=== PATIENT | male | born 1945 | race Caucasian/White ===

== ENCOUNTER 2016-12-29 08:17 | Inpatient (IN) | payer MEDICARE ==
[2016-12-29] VITALS (10 sets, daily range): BP systolic 122–146; BP diastolic 68–94; PULSE 86–110; RESP 17–20; TEMP 97.7–99.6; O2SAT 93–97
[~2016-12-29] VITALS: Ht 172.7 cm; Wt 78.6 kg
[2016-12-29] MEDS ORDERED: LIPI40TA PO (08:51)
--- NOTE | 2016-12-29 08:56 | PD ---
HPI Chief Complaint: General Weakness Time Seen by Provider: 08:40 Travel History International Travel<30 days: No Contact w/Intl Traveler<30days: No Traveled to known affect area: No History of Present Illness HPI The patient is a 71-year-old male who presents to the emergency department for increasing generalized weakness, decreased appetite, and lethargy. 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 The patient resides full-time in [place], however, staying in [place] until February. The patient was evaluated by his local oncologist last week, Dr. Kaur. The patient states his last dose of chemotherapy was on 16 December. The patient was evaluated by Dr. Hightower and placed on mirtazapine for appetite and ensure 3 times a day. The patient does state his appetite is slightly improved, however, is only drinking 1 ensure per day. The patient was able to eat chicken and vegetables last night, however, has not ate breakfast. He does note decreasing energy with difficulty ambulating around the house. The patient does not have a local primary physician. The patient does note a productive cough producing white sputum which is new over the last 3-4 days, but denies any company fever or shortness of breath. The patient denies any concurrent abdominal pain. PFSH Past Medical History Cancer: Yes (lung ca) Cardiovascular Problems: Yes High Cholesterol: Yes Chemotherapy: Yes (12/16/16) Diminished Hearing: No Respiratory: Yes Tetanus Vaccination: > 5 Years Influenza Vaccination: No Past Surgical History Cardiac Surgery: Yes (pacemaker) Cholecystectomy: Yes Coronary Stent: Yes Pacemaker: Yes Other Surgery: Yes (left lung removed) Social History Alcohol Use: No Tobacco Use: No Substance Use: No Allergies-Medications (Allergen,Severity, Reaction): Coded Allergies: No Known Allergies (Unverified , 12/29/16) Reported Meds & Prescriptions Reported Meds & Active Scripts Active Reported Lortab (Hydrocodone-Acetaminophen) 10-325 Mg Tab 1 Tab PO BID NEB PRN Mexiletine (Mexiletine HCl) 150 Mg Cap 150 Mg PO BID NEB Metoprolol Tartrate 100 Mg Tab 100 Mg PO DAILY Clonazepam 1 Mg Tab 1 Mg PO DAILY Lasix (Furosemide) 20 Mg Tab 20 Mg PO DAILY Losartan (Losartan Potassium) 25 Mg Tab 25 Mg PO DAILY Lipitor (Atorvastatin Calcium) 40 Mg Tab 40 Mg PO DAILY Review of Systems Except as stated in HPI: all other systems reviewed are Neg General / Constitutional: No: Fever HENT: No: Lightheadedness Cardiovascular: No: Chest Pain or Discomfort Respiratory: Positive: Cough, Wheezing, No: Shortness of Breath Gastrointestinal: Positive: Loss of Appetite, No: Nausea, Vomiting, Diarrhea, Abdominal Pain, Changes in Bowel Habits Musculoskeletal: Positive: Weakness Neurologic: Positive: Weakness Physical Exam Narrative GENERAL: Awake, alert, 71-year-old male who appears his stated age and is in no acute respiratory distress. SKIN: Warm and dry. HEAD: Atraumatic. Normocephalic. EYES: No injection or drainage. ENT: No nasal bleeding or discharge. Mucous membranes pink and moist. NECK: Trachea midline. No JVD. CARDIOVASCULAR: Regular, tachycardic with a heart rate of 110. Port in place right chest wall. Pacemaker in place left chest wall. RESPIRATORY: No accessory muscle use. No audible breath sounds left side. Wheezes and rhonchi noted right base. GASTROINTESTINAL: Abdomen soft, non-tender, nondistended. No rebound tenderness. MUSCULOSKELETAL: No obvious deformities. No clubbing. No cyanosis. No edema. NEUROLOGICAL: Awake and alert. No obvious cranial nerve deficits. Motor grossly within normal limits. Normal speech. PSYCHIATRIC: Appropriate mood and affect; insight and judgment normal. Data Data Last Documented VS Vital Signs Date Time Temp Pulse Resp B/P Pulse Ox O2 Delivery O2 Flow Rate FiO2 12/29/16 10:10 97.8 102 18 122/68 97 Room Air 12/29/16 09:10 21 Orders Complete Blood Count With Diff (12/29/16 08:50) Comprehensive Metabolic Panel (12/29/16 08:50) Magnesium (Mg) (12/29/16 08:50) Urinalysis - C+S If Indicated (12/29/16 08:50) Iv Access Insert/Monitor (12/29/16 08:50) Electrocardiogram (12/29/16 08:50) Ecg Monitoring (12/29/16 08:50) Oximetry (12/29/16 08:50) Oxygen Administration (12/29/16 08:50) Chest, Single Ap (12/29/16 08:50) Sodium Chloride 0.9% Flush (Ns Flush) (12/29/16 09:00) Albuterol-Ipratropium Neb (Duoneb Neb) (12/29/16 09:00) Sodium Chlor 0.9% 1000 Ml Inj (Ns 1000 M (12/29/16 09:00) Lactic Acid (12/29/16 09:25) Blood Culture (12/29/16 09:25) Cefepime Inj (Maxipime Inj) (12/29/16 09:45) Azithromycin Inj (Zithromax Inj) (12/29/16 09:45) Sodium Chlor 0.9% 1000 Ml Inj (Ns 1000 M (12/29/16 10:15) Admit Order (Ed Use Only) (12/29/16 10:18) Labs Laboratory Tests Test 12/29/16 08:55 White Blood Count 17.3 TH/MM3 Red Blood Count 5.19 MIL/MM3 Hemoglobin 15.1 GM/DL Hematocrit 43.6 % Mean Corpuscular Volume 84.1 FL Mean Corpuscular Hemoglobin 29.1 PG Mean Corpuscular Hemoglobin 34.6 % Concent Red Cell Distribution Width 14.3 % Platelet Count 160 TH/MM3 Mean Platelet Volume 7.4 FL Neutrophils (%) (Auto) 78.1 % Lymphocytes (%) (Auto) 4.6 % Monocytes (%) (Auto) 15.9 % Eosinophils (%) (Auto) 1.2 % Basophils (%) (Auto) 0.2 % Neutrophils # (Auto) 13.5 TH/MM3 Lymphocytes # (Auto) 0.8 TH/MM3 Monocytes # (Auto) 2.8 TH/MM3 Eosinophils # (Auto) 0.2 TH/MM3 Basophils # (Auto) 0.0 TH/MM3 CBC Comment AUTO DIFF Differential Comment AUTO DIFF CONFIRMED Platelet Estimate NORMAL Platelet Morphology Comment NORMAL Sodium Level 130 MEQ/L Potassium Level 4.1 MEQ/L Chloride Level 93 MEQ/L Carbon Dioxide Level 27.2 MEQ/L Anion Gap 10 MEQ/L Blood Urea Nitrogen 16 MG/DL Creatinine 0.82 MG/DL Estimat Glomerular Filtration 92 ML/MIN Rate Random Glucose 151 MG/DL Calcium Level 8.4 MG/DL Magnesium Level 2.0 MG/DL Total Bilirubin 0.8 MG/DL Aspartate Amino Transf 23 U/L (AST/SGOT) Alanine Aminotransferase 32 U/L (ALT/SGPT) Alkaline Phosphatase 107 U/L Total Protein 6.4 GM/DL Albumin 3.1 GM/DL MDM Medical Decision Making Medical Screen Exam Complete: Yes Emergency Medical Condition: Yes Medical Record Reviewed: Yes Interpretation(s) EKG reveals normal sinus rhythm with a rate in 97. Unifocal PVC. Intraventricular conduction delay with QRS 146 ms. X-ray the chest reveals nonspecific infiltrate in the right lower lung. There are no prior studies for comparison. Recommend noncontrast CT thorax for further evaluation. Differential Diagnosis Differential diagnosis includes deconditioning, malnutrition, hypoalbuminemia, hyponatremia, hypocalcemia, hypercalcemia, sepsis, bronchitis, pneumonia, dehydration. Narrative Course The patient's port was accessed, labs were drawn and sent, and the patient was placed on cardiac telemetry monitoring and continuous pulse oximetry monitoring. EKG was ordered and interpreted. Chest x-ray was ordered. The patient was administered DuoNeb nebs 2 and 1 L of normal saline. I reviewed the patient's recent visit with his local oncologist, Dr. Hightower. The patient's chest x-ray reveals nonspecific infiltrate in the right lower lung. Chest x- ray also demonstrates a previous left pneumonectomy with postsurgical changes. As the patient has an infiltrate in the right lung, the patient was administered cefepime and Zithromax, patient has had recent chemotherapy with progressing symptoms. The patient will be admitted. I reviewed the patient's CT of the thorax with contrast that was performed December 13, 2016 at [facility]. The patient had a 3.5 cm masslike density in the lateral right lung apex with some adjacent linear parenchymal density and a greater than 6 cm masslike density present in the posterior right lung base with some adjacent airspace consolidation. Several right lung masses are noted with no comparison studies, also noted previous left pneumonectomy. The patient also had a CT the abdomen and pelvis with no evidence of metastatic disease in the abdomen or pelvis. Sepsis Criteria SIRS Criteria (2 or more): Heart rate over 90, WBC > 14972, < 4000 or > 10% bands Sepsis Criteria (SIRS+source): Infect source susp/known Criteria Outcome: Meets sepsis criteria Physician Communication Physician Communication The on-call medical service was paged for admission. I discussed the patient with Dr. Gotti who agrees with admission. Diagnosis Primary Impression: Pneumonia Qualified Code: J18.1 - Pneumonia of right lower lobe due to infectious organism Additional Impressions: Sepsis Qualified Code: A41.9 - Sepsis, due to unspecified organism Carcinoma, lung Qualified Code: C34.91 - Carcinoma, lung, right Condition: Stable Ahmet Licea MD Dec 29, 2016 08:56
[2016-12-29] MEDS ORDERED: SODIUM CHLOR 0.9% 1000 ML INJ 1,000 ML IV ONE ×2 (09:00→10:15)
[2016-12-29] MEDS ORDERED: SODIUM CHLORIDE 0.9% FLUSH 5 ML FLUSH IVF PRN (09:00)
[2016-12-29] MEDS ORDERED: HYDR-3535 PO (09:01)
[2016-12-29] MEDS ORDERED: FURO1TAB62 PO (09:01)
[2016-12-29] MEDS ORDERED: LOSA25TA PO (09:01)
[2016-12-29] MEDS ORDERED: CLON1TAB PO (09:01)
[2016-12-29] MEDS ORDERED: METO100T PO (09:01)
[2016-12-29] MEDS ORDERED: MEXI150C PO (09:01)
[2016-12-29] MEDS: RESP: ALBUTEROL 2.5 MG/IPRATROPIUM 0.5 MG NEB (SCH) INH ×2 (09:09→09:10)
[2016-12-29 09:35] LABS: AUTOMATED NEUTROPHIL # 13.5 TH/MM3 (1.8-7.7); BASOPHIL % 0.2 % (0.0-2.0); EOSINOPHIL # 0.2 TH/MM3 (0-0.4); EOSINOPHIL % 1.2 % (0.0-4.0); HEMATOCRIT 43.6 % (39.0-51.0); LYMPH % 4.6 % (9.0-44.0); LYMPHOCYTE # 0.8 TH/MM3 (1.0-4.8); MEAN CELL VOLUME 84.1 FL (80.0-100.0); MEAN CORPUSCULAR HEMOGLOBIN 29.1 PG (27.0-34.0); MEAN CORPUSCULAR HGB CONC 34.6 % (32.0-36.0); MONO % 15.9 % (0.0-8.0); NEUT % 78.1 % (16.0-70.0); PLATELET COUNT 160 TH/MM3 (150-450); RED BLOOD COUNT 5.19 MIL/MM3 (4.50-5.90); RED CELL DISTRIBUTION WIDTH 14.3 % (11.6-17.2); WHITE BLOOD COUNT 17.3 TH/MM3 (4.0-11.0)
--- NOTE | 2016-12-29 09:36 | RADRPT ---
EXAM DATE/TIME: 12/29/2016 09:07 [place] COMPARISON: No previous studies available for comparison. INDICATIONS : Weakness and shortness of breath for over one week. MEDICAL HISTORY : Carcinoma, lung. SURGICAL HISTORY : Pacemaker. Coronary stent. Debrillator. Left pneumonectomy. ENCOUNTER: Initial ACUITY: 1 week PAIN SCORE: 0/10 LOCATION: Bilateral chest FINDINGS: A single view of the chest demonstrates a previous left pneumonectomy with postsurgical changes. Ther e is a nonspecific parenchymal infiltrate in the right lower lung. The right upper lung is clear. The re are no pleural effusions. The heart silhouette is obscured by the left pneumonectomy. There is a p acemaker overlying the left chest. There is no pneumothorax. There is a right-sided central line in p lace. The bony structures are grossly intact. CONCLUSION: Nonspecific infiltrate in the right lower lung. There are no prior studies for comparison. Recommend noncontrast CT thorax for further evaluation. Wil Ferrara MD on December 29, 2016 at 9:32 Board Certified Radiologist. This report was verified electronically.
[2016-12-29 09:40] LABS: HEMO FLAGS AUTO DIFF
[2016-12-29] MEDS ORDERED: AZITHROMYCIN INJ 500 MG in SODIUM CHLOR 0.9% 250 ML INJ 250 ML IV ONE (09:45)
[2016-12-29] MEDS ORDERED: CEFEPIME INJ 2,000 MG in SODIUM CHLORIDE 0.9% INJ 100 ML IV ONE (09:45)
[2016-12-29 09:50] LABS: ALKALINE PHOSPHATASE 107 U/L (45-117); ALT (GPT) 32 U/L (12-78); ANION GAP 10 MEQ/L (5-15); AST (GOT) 23 U/L (15-37); BICARBONATE 27.2 MEQ/L (21.0-32.0); BLOOD UREA NITROGEN 16 MG/DL (7-18); CHLORIDE 93 MEQ/L (98-107); GLOMERULAR FILTRATION RATE 92 ML/MIN (>89); POTASSIUM 4.1 MEQ/L (3.5-5.1); SODIUM (NA) 130 MEQ/L (136-145); TOTAL BILIRUBIN ADULT 0.8 MG/DL (0.2-1.0)
[2016-12-29 10:09] LABS: PLATELET ESTIMATE SMEAR NORMAL (NORMAL); PLATELET MORPHOLOGY NORMAL (NORMAL); SCAN/DIFF AUTO DIFF CONFIRMED
[2016-12-29] MEDS ORDERED: NALOXONE HCL 0.4 MG/ML AMP IV PRN (10:30)
[2016-12-29] MEDS ORDERED: ONDANSETRON HCL 4 MG/2 ML VIAL IVP PRN (10:30)
[2016-12-29] MEDS ORDERED: SODIUM CHLORIDE 0.9% FLUSH 5 ML FLUSH FLUSH PRN (10:30)
[2016-12-29] MEDS ORDERED: TEMAZEPAM 15 MG CAP PO PRN (10:30)
[2016-12-29] MEDS ORDERED: ACETAMINOPHEN 325 MG TAB PO PRN ×2 (10:30)
[2016-12-29] MEDS ORDERED: RESP: ALBUTEROL 2.5 MG/IPRATROPIUM 0.5 MG NEB (PRN) NEB (10:30)
--- NOTE | 2016-12-29 12:19 | HHI.HP ---
[facility] Service [facility] Primary Care Physician Non-Staff Admission Diagnosis right lower lobe pneumonia, sepsis, lung carcinoma on chemotherapy Diagnoses: (1) Severe sepsis (2) Pneumonia (3) Carcinoma, lung Chief Complaint: Shortness of breath and generalized weakness Travel History International Travel<30 Days: No Contact w/Intl Traveler <30 Da: No Traveled to Known Affected Are: No Sepsis Criteria SIRS Criteria (2 or more): Heart rate over 90, WBC > 90875, < 4000 or > 10% bands Sepsis Criteria (SIRS+source): Infect source susp/known Severe Sepsis (+one): Lactate >2 Criteria Outcome: Meets severe sepsis criteria History of Present Illness 71-year-old male with poorly differentiated stage IV squamous cell carcinoma of the lung was previously under the care of medical oncology and receiving chemotherapy presented to the ED for evaluation of worsening shortness of breath , generalized weakness and a productive cough producing white sputum x 4 days without any febrile episode. Patient also reports continued decrease appetite. Patient received his last dose of chemotherapy on 12/16/16 and is due for one in January. Currently denies any abdominal pain, chest pain or any GI bleed. He is originally from [place] and has been living in [place] for the past 4 months visiting a friend. Patient has previous partial left lung resection Review of Systems Other 12 systems reviewed and are negative except for the one mentioned in the history of present illness Past Family Social History Past Medical History Stage IV poorly differentiated squamous cell carcinoma of the lung Coronary artery disease Hyperlipidemia Hypertension Past Surgical History Cholecystectomy: Yes Hernia repair CABG Coronary Stent: Yes Pacemaker: Yes left lung removed Reported Medications Lortab (Hydrocodone-Acetaminophen) 10-325 Mg Tab 1 Tab PO BID NEB PRN Mexiletine (Mexiletine HCl) 150 Mg Cap 150 Mg PO BID NEB Metoprolol Tartrate 100 Mg Tab 100 Mg PO DAILY Clonazepam 1 Mg Tab 1 Mg PO DAILY Lasix (Furosemide) 20 Mg Tab 20 Mg PO DAILY Losartan (Losartan Potassium) 25 Mg Tab 25 Mg PO DAILY Lipitor (Atorvastatin Calcium) 40 Mg Tab 40 Mg PO DAILY Allergies: Coded Allergies: No Known Allergies (Unverified , 12/29/16) Family History Strong family history of lung cancer with both his sister and brother dying from the disease Social History Alcohol Use: No Tobacco Use: No Substance Use: No Physical Exam Vital Signs Vital Signs Date Time Temp Pulse Resp B/P Pulse Ox O2 Delivery O2 Flow Rate FiO2 12/29/16 10:10 97.8 102 18 122/68 97 Room Air 12/29/16 09:10 96 21 12/29/16 09:03 98 18 136/75 97 Room Air 12/29/16 09:01 96 Room Air 12/29/16 09:01 18 97 Room Air 12/29/16 08:47 18 96 Room Air 12/29/16 08:19 97.7 110 18 146/83 94 Room Air Physical Exam GENERAL: This is a well-nourished, well-developed patient, in no apparent distress. SKIN: No rashes, ecchymoses or lesions. Cool and dry. HEAD: Atraumatic. Normocephalic. No temporal or scalp tenderness. EYES: Pupils equal round and reactive. Extraocular motions intact. No scleral icterus. No injection or drainage. ENT: Nose without bleeding, purulent drainage or septal hematoma. Throat without erythema, tonsillar hypertrophy or exudate. Uvula midline. Airway patent. NECK: Trachea midline. No JVD or lymphadenopathy. Supple, nontender, no meningeal signs. CARDIOVASCULAR: Regular rate and rhythm without murmurs, gallops, or rubs. RESPIRATORY: Breath sounds decreased right lung and absent on the left side. + rhonchi. GASTROINTESTINAL: Abdomen soft, non-tender, nondistended. No hepato-splenomegaly , or palpable masses. No guarding. MUSCULOSKELETAL: Extremities without clubbing, cyanosis, or edema. No joint tenderness, effusion, or edema noted. No calf tenderness. Negative Homans sign bilaterally. NEUROLOGICAL: Awake and alert. Cranial nerves II through XII intact. Motor and sensory grossly within normal limits. Five out of 5 muscle strength in all muscle groups. Normal speech. Laboratory Laboratory Tests Test 12/29/16 12/29/16 08:55 09:50 White Blood Count 17.3 Red Blood Count 5.19 Hemoglobin 15.1 Hematocrit 43.6 Mean Corpuscular Volume 84.1 Mean Corpuscular Hemoglobin 29.1 Mean Corpuscular Hemoglobin 34.6 Concent Red Cell Distribution Width 14.3 Platelet Count 160 Mean Platelet Volume 7.4 Neutrophils (%) (Auto) 78.1 Lymphocytes (%) (Auto) 4.6 Monocytes (%) (Auto) 15.9 Eosinophils (%) (Auto) 1.2 Basophils (%) (Auto) 0.2 Neutrophils # (Auto) 13.5 Lymphocytes # (Auto) 0.8 Monocytes # (Auto) 2.8 Eosinophils # (Auto) 0.2 Basophils # (Auto) 0.0 CBC Comment AUTO DIFF Differential Comment AUTO DIFF CONFIRMED Platelet Estimate NORMAL Platelet Morphology Comment NORMAL Sodium Level 130 Potassium Level 4.1 Chloride Level 93 Carbon Dioxide Level 27.2 Anion Gap 10 Blood Urea Nitrogen 16 Creatinine 0.82 Estimat Glomerular Filtration 92 Rate Random Glucose 151 Calcium Level 8.4 Magnesium Level 2.0 Total Bilirubin 0.8 Aspartate Amino Transf 23 (AST/SGOT) Alanine Aminotransferase 32 (ALT/SGPT) Alkaline Phosphatase 107 Total Protein 6.4 Albumin 3.1 Lactic Acid Level 3.5 Date/Time Procedure Status Source Growth 12/29/16 09:50 Aerobic Blood Culture Received Blood Peripheral Pending 12/29/16 09:50 Anaerobic Blood Culture Received Blood Peripheral Pending Result Diagram: 12/29/16 0855 12/29/16 0855 Imaging Last Impressions Chest X-Ray 12/29/16 0850 Signed Impressions: Service Date/Time: Thursday, December 29, 2016 09:07 - CONCLUSION: Nonspecific infiltrate in the right lower lung. There are no prior studies for comparison. Recommend noncontrast CT thorax for further evaluation. Wil Ferrara MD Assessment and Plan Problem List: (1) Severe sepsis ICD Code: A41.9 Status: Acute (2) Carcinoma, lung ICD Code: C34.90 Status: Acute (3) Pneumonia ICD Code: J18.9 Status: Acute Assessment and Plan 71-year-old male with Severe sepsis: Meets severe sepsis criteria; Heart rate over 90, WBC > 10810, < 4000 or > 10% bands and Lactate >2; likely secondary to pulmonary infiltrate. Status post cefepime IV 1 and azithromycin IV 1 in ED, continue with cefepime every 8Hours and Azithromycin; monitor cultures Community-acquired pneumonia: Chest x-ray noted and reviewed by me with finding of Nonspecific infiltrate in the right lower lung. Outside CT thorax 12/13/16 findings discussed and review by me with ED physician with finding of 3.5 cm masslike density in the lateral right lung apex with some adjacent linear parenchymal density and a greater than 6 cm masslike density present in the posterior right lung base with some adjacent airspace consolidation. Several right lung masses are noted with no comparison studies, also noted previous left pneumonectomy. Currently on Cefepime IV every 8 hours and Azithromycin, DuoNeb and maintain oxygen saturation above 92%. Leukocytosis with bandemia: Treat as in above History of poorly differentiated squamous cell carcinoma of the lung: Consult medical oncology for further evaluation. Patient currently receiving chemotherapy.Outside CT thorax 12/13/16 findings discussed and review by me with ED physician with finding of 3.5 cm masslike density in the lateral right lung apex with some adjacent linear parenchymal density and a greater than 6 cm masslike density present in the posterior right lung base with some adjacent airspace consolidation. Several right lung masses are noted with no comparison studies, also noted previous left pneumonectomy. Again outside CT abdomen/ pelvics reviewed by me and finding discussed with ED physician without no evidence of metastasis disease in abdomen/pelvics Anorexia: Secondary to history of present on cancer, dietary consult. Ensure 3 times a day. Continue with History of heart disease, and other chronic medical conditions: Resume outpatient medications DVT Prophylaxis: B-SCDs Code Status Full code Discussed Condition With Patient, ED physician Physician Certification 2 Midnight Certification Type: Admission for Inpatient Services Order for Inpatient Services The services are ordered in accordance with Medicare regulations or non- Medicare payer requirements, as applicable. In the case of services not specified as inpatient-only, they are appropriately provided as inpatient services in accordance with the 2-midnight benchmark. Estimated LOS (days): 2 days is the estimated time the patient will need to remain in the hospital, assuming treatment plan goals are met and no additional complications. Post-Hospital Plan: Not yet determined Problem Qualifiers (1) Pneumonia: Qualified Code: J18.1 - Pneumonia of right lower lobe due to infectious organism (2) Carcinoma, lung: Qualified Code: C34.91 - Carcinoma, lung, right Ezekiel Gotti MD Dec 29, 2016 12:19
[2016-12-29 12:38] LABS: BLOOD, URINE NEG (NEG); COMMENT (UR) CULT NOT INDICATED; CULTURE IF INDICATED CULT NOT INDICATED; GLUCOSE,URINE 70 mg/dL (NEG); KETONE, URINE NEG (NEG); MUCUS URINE FEW /lpf (OCC); NITRITE,URINE NEG (NEG); SQUAMOUS EPITHELIAL CELL URINE <1 /hpf (0-5); URINE COLOR YELLOW (YELLW/STRAW)
--- NOTE | 2016-12-29 12:50 | EKG ---
Date Performed: 12/29/2016 Time Performed: 09:00:55 PTAGE: 71 years EKG: Sinus rhythm WITH FREQUENT VENTRICULAR PREMATURE COMPLEXES POSSIBLE LEFT ATRIAL ENLARGEMENT INTRAVENTRICULAR COND UCTION DELAY ABNORMAL ECG NO PREVIOUS TRACING DOCTOR: Juan Whelan Interpretating Date/Time 12/29/2016 12:48:47
[2016-12-29] MEDS: RESP: ALBUTEROL 2.5 MG/IPRATROPIUM 0.5 MG NEB (SCH) NEB ×2 (13:08→19:45)
[2016-12-29] MEDS ORDERED: MEXILETINE HCL 200 MG CAP PO SCH (14:00)
--- NOTE | 2016-12-29 14:19 | MB ---
cc: MARTA TRIVEDI DATE OF CONSULTATION: 12/29/2016. REASON FOR CONSULTATION: 1. Stage IV lung cancer with the patient receiving nivolumab. 2. Probable acute pneumonia. PATIENT PROFILE: The patient is a 71-year white male. He was once and . He was born in [place]. He is visiting in [place] and staying with a close friend and is planning on returning in early February of 2017 to [place]. His current residence is in [place]. 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 He stopped smoking in 1984 and previously smoked three packs of cigarettes per day for 25 years for a total of 75 pack/years. He does not drink alcohol. HISTORY OF PRESENT ILLNESS: The patient is a 71-year-old male whose history dates back to 1997 when he had a left pneumonectomy for a non-small cell lung cancer. He developed recurrence in 2007 involving the right lung positive for poorly differentiated squamous cell carcinoma. He was treated with concurrent chemotherapy and radiation therapy and achieved a remission. He then had recurrence or a relapse in 2014 and underwent additional radiation therapy. He developed a further recurrence in 2015, and he states he was again treated with radiation therapy. In October of 2016, he was started on nivolumab receiving treatment every two weeks. There has been about a 20 pound weight loss during the past several months. He was relatively stable until the past week when he developed increasing cough, shortness of breath, a rattle in the chest and a mild amount of clear sputum. Due to this acute deterioration, he went to the emergency room and had a chest x-ray on 12/29/2016. I reviewed the images and there is a nonspecific infiltrate in the right lower lung. There were no previous studies for comparison. He had recent studies done at [facility] in [place]. I called up the images and reviewed the images. He had a CT scan of the abdomen and pelvis and thorax on December 13, 2016. The abdominal CT scan shows no evidence of metastatic disease in the abdomen. The CT scan of the thorax is distinctly abnormal. There is a 3.5 cm mass in the lateral right lung apex. In the right hilum, there is a mass measuring 1.5 cm. There is an approximately 6 cm mass-like density in the posterior right lung base with some adjacent airspace consolidation. 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 PAST SURGICAL HISTORY: 1. Cholecystectomy. 2. Coronary artery bypass grafting of three vessels in 2000. 3. Defibrillator placement in 2010. 4. Hernia in 196. 5. Left pneumonectomy in 1997. PAST MEDICAL HISTORY: 1. 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 2. Arthritis. 3. Elevated cholesterol. 4. Hypertension. 5. Myocardial infarction in 1984. MEDICATIONS PRIOR TO ADMISSION: 1. Tylenol PRN. 2. Atorvastatin 40 milligrams a day. 3. Clonazepam 2 milligrams p.o. at bedtime PRN sleep. 4. Lasix 20 a day. 5. Lortab PRN. 6. Losartan 25 milligrams a day. 7. Metoprolol 100 milligrams a day. 8. Mexiletine 150 milligrams p.o. twice a day. ALLERGIES: NO KNOWN DRUG ALLERGIES. FAMILY HISTORY: Family history is noncontributory. REVIEW OF SYSTEMS: No change in vision or hearing. No chest pain or palpitations, orthopnea or PND. RESPIRATORY: Increasing shortness of breath, cough rattling chest and occasional sputum, primarily clear. GI: Diminished appetite and 15-20 pound weight loss. No melena, hematochezia or hematemesis. : Decreased urinary force. MUSCULOSKELETAL: Some mild arthritic pains. NEUROLOGIC: Generalized but not focal weakness. SKIN: Normal. PHYSICAL EXAMINATION: GENERAL: The physical exam reveals a gentleman who appears both chronically and acutely ill. He has a raspy deep wet cough. VITAL SIGNS: His blood pressure is 130/70, respiratory rate 18, pulse 100, temperature 99, 02 saturation is 97%. HEAD, EYES, EARS, NOSE, THROAT: Head is normocephalic. The sclerae and conjunctivae are normal. Oropharynx unremarkable. LYMPHATIC: There is no cervical, supraclavicular, axillary or inguinal adenopathy. CHEST: He has an Infusaport to the right of the sternum. He has a defibrillator in the left upper chest. HEART: Regular rhythm. Rate 90. LUNGS: The left lungs sounds are almost absent. The right lung shows wheezing and a few rhonchi. Of note, he indicates that the wheezing is new. ABDOMEN: Abdomen is soft. No enlargement of the liver or spleen. No masses. No tenderness. EXTREMITIES: Trace edema. MUSCULOSKELETAL: No bone pain. NEUROLOGIC: No weakness. Cognition and affect normal. SKIN: Unremarkable except for occasional ecchymoses. ASSESSMENT: 1. The patient is a 71-year-old male who has had multiple recurrences of a non-small cell lung cancer. In fact, he has had at least three recurrences. He has received extensive chemotherapy and is now receiving nivolumab. He has had an acute deterioration with increasing cough, shortness of breath and an abnormal exam of the lungs. He has an infiltrate in the right lung. I believe that he has pneumonia and appropriate antibiotics have been started 2. He has stage IV [id number] lung cancer. He has significant radiographic findings on the CT of the thorax. It is imperative that his previous films be obtained for comparison. Given the extensive radiation he has received before, the old films will be necessary to determine what is progressive disease, what are changes from radiation therapy and what is ongoing pneumonia. In the meantime, the only issue is the treatment of his pneumonia. Antibiotics have been ordered consisting of cefepime and Zithromax and this should be adequate. He is also receiving albuterol. MD LULU Benavides/JUAN MIGUEL /1:42 PM /2:03 PM SUDHA
[2016-12-29] MEDS: CEFEPIME INJ 2,000 MG in SODIUM CHLORIDE 0.9% INJ 100 ML IV SCH (18:43)
[2016-12-29] MEDS: SODIUM CHLORIDE 0.9% FLUSH 5 ML FLUSH FLUSH SCH (20:17)
[2016-12-29] MEDS: LACTOBACILLUS ACIDOPHILUS TAB PO SCH (20:17)
[2016-12-29] MEDS ORDERED: MEXILETINE 150 MG PO SCH (21:00)
[2016-12-30] VITALS (8 sets, daily range): BP systolic 82–118; BP diastolic 57–73; PULSE 72–92; RESP 18–22; TEMP 97.3–98.9; O2SAT 93–100
[2016-12-30] MEDS: CEFEPIME INJ 2,000 MG in SODIUM CHLORIDE 0.9% INJ 100 ML IV SCH ×3 (02:18→18:08)
[2016-12-30] MEDS: RESP: ALBUTEROL 2.5 MG/IPRATROPIUM 0.5 MG NEB (SCH) NEB ×3 (08:30→19:05)
[2016-12-30] MEDS ORDERED: clonazePAM 1 MG TAB PO SCH (09:00)
--- NOTE | 2016-12-30 09:56 | HHI.PR ---
Subjective Remarks Follow-up severe sepsis/community-acquired pneumonia/lung cancer 12/30/16-patient seen and examined, reports significant improvement of weakness as well as cough production. Currently afebrile Objective Vitals Vital Signs Date Time Temp Pulse Resp B/P Pulse Ox O2 Delivery O2 Flow Rate FiO2 12/30/16 08:31 95 21 12/30/16 08:00 97.5 80 22 104/64 100 12/30/16 04:05 97.9 73 18 118/73 96 12/30/16 00:00 98.2 83 18 97/73 93 12/29/16 20:00 99.6 86 17 130/86 94 12/29/16 19:45 93 21 12/29/16 15:30 99.6 107 20 132/94 96 12/29/16 14:53 108 17 137/68 97 12/29/16 12:30 99.0 99 18 137/69 97 Room Air 12/29/16 10:10 97.8 102 18 122/68 97 Room Air I/O 12/29/16 12/29/16 12/29/16 12/30/16 12/30/16 12/30/16 07:00 15:00 23:00 07:00 15:00 23:00 Intake Total 180 ml 240 ml 340 ml Output Total 1200 ml 590 ml 600 ml 800 ml Balance -1020 ml -350 ml -260 ml -800 ml Intake Oral 180 ml 240 ml 240 ml IV Total 100 ml Output Urine Total 1200 ml 590 ml 600 ml 800 ml # Voids 2 # Bowel Movements 0 0 0 Result Diagram: 12/29/16 0855 12/29/16 0855 Imaging Last Impressions Chest X-Ray 12/29/16 0850 Signed Impressions: Service Date/Time: Thursday, December 29, 2016 09:07 - CONCLUSION: Nonspecific infiltrate in the right lower lung. There are no prior studies for comparison. Recommend noncontrast CT thorax for further evaluation. Wil Ferrara MD Objective Remarks GENERAL: NAD SKIN: Warm and dry. HEAD: Normocephalic. EYES: No scleral icterus. No injection or drainage. NECK: Supple, trachea midline. No JVD or lymphadenopathy. CARDIOVASCULAR: Regular rate and rhythm without murmurs, gallops, or rubs. RESPIRATORY: Breath sounds decrease Right lung and absent on Left side. No accessory muscle use. GASTROINTESTINAL: Abdomen soft, non-tender, nondistended. MUSCULOSKELETAL: No cyanosis, or edema. BACK: Nontender without obvious deformity. No CVA tenderness. A/P Problem List: (1) Severe sepsis ICD Code: A41.9 Status: Acute (2) Pneumonia ICD Code: J18.9 Status: Acute (3) Carcinoma, lung ICD Code: C34.90 Status: Acute Assessment and Plan 71-year-old male with Severe sepsis: continue with cefepime every 8Hours and Azithromycin; monitor cultures Community-acquired pneumonia: Chest x-ray with finding of Nonspecific infiltrate in the right lower lung. Outside CT thorax 12/13/16 with finding of 3.5 cm masslike density in the lateral right lung apex with some adjacent linear parenchymal density and a greater than 6 cm masslike density present in the posterior right lung base with some adjacent airspace consolidation. Several right lung masses are noted with no comparison studies, also noted previous left pneumonectomy. Continue with Cefepime IV every 8 hours and Azithromycin, DuoNeb and maintain oxygen saturation above 92%. 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 Patient currently receiving chemotherapy.Outside CT thorax 12/13/16 with finding of 3.5 cm masslike density in the lateral right lung apex with some adjacent linear parenchymal density and a greater than 6 cm masslike density present in the posterior right lung base with some adjacent airspace consolidation. Several right lung masses are noted with no comparison studies, also noted previous left pneumonectomy. outside CT abdomen/pelvics without no evidence of metastasis disease in abdomen /pelvics Anorexia: Secondary to history of present on cancer, dietary consult. Ensure 3 times a day. Continue with History of heart disease, and other chronic medical conditions: Continue outpatient medications DVT Prophylaxis: B-SCDs Problem Qualifiers (1) Pneumonia: Qualified Code: J18.1 - Pneumonia of right lower lobe due to infectious organism (2) Carcinoma, lung: Qualified Code: C34.91 - Carcinoma, lung, right Ezekiel Gotti MD Dec 30, 2016 09:56
[2016-12-30] MEDS ORDERED: Infusaport/Implanted VAD PRN NS Lock Flush IVF (10:00)
[2016-12-30] MEDS: LACTOBACILLUS ACIDOPHILUS TAB PO SCH ×2 (10:22→21:09)
[2016-12-30] MEDS: ATORVASTATIN 40 MG TAB PO SCH (10:22)
[2016-12-30] MEDS: LOSARTAN 25 MG TAB PO SCH (10:22)
[2016-12-30] MEDS: FUROSEMIDE 20 MG TAB PO SCH (10:22)
[2016-12-30] MEDS: METOPROLOL TARTRATE 100 MG TAB PO SCH (10:23)
[2016-12-30] MEDS: AZITHROMYCIN INJ 500 MG in SODIUM CHLOR 0.9% 250 ML INJ 250 ML IV SCH (10:24)
[2016-12-30] MEDS: SODIUM CHLORIDE 0.9% FLUSH 5 ML FLUSH FLUSH SCH ×2 (10:32→21:10)
[2016-12-30 10:55] LABS: AUTOMATED NEUTROPHIL # 8.6 TH/MM3 (1.8-7.7); BASOPHIL % 0.2 % (0.0-2.0); EOSINOPHIL # 0.3 TH/MM3 (0-0.4); EOSINOPHIL % 2.4 % (0.0-4.0); HEMATOCRIT 42.7 % (39.0-51.0); HEMO FLAGS DIFF FINAL; LYMPH % 6.9 % (9.0-44.0); LYMPHOCYTE # 0.8 TH/MM3 (1.0-4.8); MEAN CELL VOLUME 85.5 FL (80.0-100.0); MEAN CORPUSCULAR HEMOGLOBIN 29.2 PG (27.0-34.0); MEAN CORPUSCULAR HGB CONC 34.2 % (32.0-36.0); MONO % 13.6 % (0.0-8.0); NEUT % 76.9 % (16.0-70.0); PLATELET COUNT 143 TH/MM3 (150-450); WHITE BLOOD COUNT 11.2 TH/MM3 (4.0-11.0)
[2016-12-30 11:29] LABS: ANION GAP 7 MEQ/L (5-15); AST (GOT) 22 U/L (15-37); BICARBONATE 29.2 MEQ/L (21.0-32.0); BLOOD UREA NITROGEN 12 MG/DL (7-18); CHLORIDE 98 MEQ/L (98-107); GLOMERULAR FILTRATION RATE 91 ML/MIN (>89); POTASSIUM 4.5 MEQ/L (3.5-5.1); SODIUM (NA) 134 MEQ/L (136-145)
[2016-12-30 11:34] LABS: ALKALINE PHOSPHATASE 85 U/L (45-117); ALT (GPT) 22 U/L (12-78); TOTAL BILIRUBIN ADULT 0.7 MG/DL (0.2-1.0)
--- NOTE | 2016-12-30 15:36 | PD.ONC.PN ---
Subjective Subjective Remarks Afebrile overnight. Patient states he feels much better today. He ate some breakfast and is in the midst of eating lunch. Objective Data Date Time Temp Pulse Resp B/P Pulse Ox O2 Delivery O2 Flow Rate FiO2 12/30/16 12:00 97.5 88 20 82/57 95 12/30/16 08:31 95 21 12/30/16 08:00 97.5 80 22 104/64 100 12/30/16 04:05 97.9 73 18 118/73 96 12/30/16 00:00 98.2 83 18 97/73 93 12/29/16 20:00 99.6 86 17 130/86 94 12/29/16 19:45 93 21 12/29/16 15:30 99.6 107 20 132/94 96 12/30/16 12/30/16 12/30/16 07:00 15:00 23:00 Intake Total 340 ml Output Total 600 ml 800 ml Balance -260 ml -800 ml Result Diagram: 12/30/16 1035 12/30/16 1035 Laboratory Results Laboratory Tests Test 12/30/16 10:35 White Blood Count 11.2 TH/MM3 Red Blood Count 5.00 MIL/MM3 Hemoglobin 14.6 GM/DL Hematocrit 42.7 % Mean Corpuscular Volume 85.5 FL Mean Corpuscular Hemoglobin 29.2 PG Mean Corpuscular Hemoglobin 34.2 % Concent Red Cell Distribution Width 15.0 % Platelet Count 143 TH/MM3 Mean Platelet Volume 7.0 FL Neutrophils (%) (Auto) 76.9 % Lymphocytes (%) (Auto) 6.9 % Monocytes (%) (Auto) 13.6 % Eosinophils (%) (Auto) 2.4 % Basophils (%) (Auto) 0.2 % Neutrophils # (Auto) 8.6 TH/MM3 Lymphocytes # (Auto) 0.8 TH/MM3 Monocytes # (Auto) 1.5 TH/MM3 Eosinophils # (Auto) 0.3 TH/MM3 Basophils # (Auto) 0.0 TH/MM3 CBC Comment DIFF FINAL Differential Comment Sodium Level 134 MEQ/L Potassium Level 4.5 MEQ/L Chloride Level 98 MEQ/L Carbon Dioxide Level 29.2 MEQ/L Anion Gap 7 MEQ/L Blood Urea Nitrogen 12 MG/DL Creatinine 0.83 MG/DL Estimat Glomerular Filtration 91 ML/MIN Rate Random Glucose 130 MG/DL Calcium Level 8.8 MG/DL Total Bilirubin 0.7 MG/DL Aspartate Amino Transf 22 U/L (AST/SGOT) Alanine Aminotransferase 22 U/L (ALT/SGPT) Alkaline Phosphatase 85 U/L Total Protein 6.1 GM/DL Albumin 2.8 GM/DL Culture Results Microbiology Date/Time Procedure Status Source Growth 12/29/16 09:12 Aerobic Blood Culture - Preliminary Resulted Blood Peripheral NO GROWTH IN 1 DAY 12/29/16 09:12 Anaerobic Blood Culture - Preliminary Resulted Blood Peripheral NO GROWTH IN 1 DAY 12/29/16 09:50 Aerobic Blood Culture - Preliminary Resulted Blood Peripheral NO GROWTH IN 1 DAY 12/29/16 09:50 Anaerobic Blood Culture - Preliminary Resulted Blood Peripheral NO GROWTH IN 1 DAY Administered Medications Medications (Trade) Dose Ordered Sig/Levy Route PRN Reason Start Time Stop Time Status Last Admin Dose Admin IV Flush 2 ml 2 ml BID FLUSH 12/29/16 21:00 12/30/16 10:32 Cefepime HCl/ Sodium Chloride (Maxipime Inj/NS Inj) 100 ml @ 200 mls/hr Q8H IV 12/29/16 18:00 12/30/16 11:22 Lactobacillus Acidophilus (Lactinex) 1 tab Q12HR PO 12/29/16 21:00 12/30/16 10:22 Atorvastatin Calcium (Lipitor) 40 mg DAILY PO 12/30/16 09:00 12/30/16 10:22 Furosemide (Lasix) 20 mg DAILY PO 12/30/16 09:00 12/30/16 10:22 Losartan Potassium (Cozaar) 25 mg DAILY PO 12/30/16 09:00 12/30/16 10:22 Metoprolol Tartrate 100 mg 100 mg DAILY PO 12/30/16 09:00 12/30/16 10:23 Azithromycin/ Sodium Chloride (Zithromax Inj/ NS 250 ml Inj) 250 ml @ 250 mls/hr Q24H IV 12/30/16 09:00 12/30/16 10:24 Heparin Sodium (Porcine) (Heparin Central Flush) 250 units UNSCH PRN IVF SEE PROTOCOL TABLE 12/30/16 10:00 12/30/16 10:24 Objective Remarks GENERAL: Elderly male, sitting up in bed eating lunch SKIN: Warm and dry. HEAD: Normocephalic. EYES: No injection or drainage. NECK: Supple, trachea midline. CARDIOVASCULAR: +S1/S2 RESPIRATORY: no breath sounds, left lung. diminished at right base, occasional rhonchi GASTROINTESTINAL: Abdomen soft, non-tender, nondistended. EXTREMITIES: No cyanosis NEUROLOGICAL: No obvious focal deficit. Awake, alert, and oriented x3. Assessment/Plan Problem List: (1) Carcinoma, lung Status: Acute Plan: History: 1997--diagnosed and had a left pneumonectomy 2007 developed recurrence involving the right lung positive for poorly differentiated squamous cell carcinoma. treated with concurrent chemotherapy and radiation therapy and achieved a remission. 2014 relapse--> underwent additional radiation therapy. 2016: further recurrence in 2015, again treated with radiation therapy. October 2016, started on nivolumab receiving treatment every two weeks. +20 pound weight loss during the past several months. CT ab/pelvis: no mets in abdomen Ct thorax: 3.5cm mass in the lateral right lung apex. +mass1.5 cm, right hilum; + 6 cm mass-like density in the posterior right lung base with some adjacent airspace consolidation. 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 (2) Pneumonia Status: Acute Plan: --on Cefepime and Zithromax --BC no growth --WBC improving Assessment 71y/o male with metastatic NSCLC admitted with pneumonia h/o Cholecystectomy. Coronary artery bypass grafting of three vessels in 2000. Defibrillator placement in 2010. Left pneumonectomy in 1997. Hypertension. Myocardial infarction in 1984. Plan 1. continue antibiotics 2. consult concrete floater 3. supportive care. Attending Statement The exam, history, and the medical decision-making described in the above note were completed with the assistance of the mid-level provider. I reviewed and agree with the findings presented. I attest that I had a [id number] encounter with the patient on the same day, and personally performed and documented my assessment and findings in the medical record. Problem Qualifiers (1) Carcinoma, lung: Qualified Code: C34.91 - Carcinoma, lung, right (2) Pneumonia: Qualified Code: J18.1 - Pneumonia of right lower lobe due to infectious organism Shara Narvaez Dec 30, 2016 15:36 Bryan Hightower MD Dec 31, 2016 22:03
[2016-12-30] MEDS: clonazePAM 1 MG TAB PO SCH (21:09)
[2016-12-31] VITALS (7 sets, daily range): BP systolic 89–136; BP diastolic 62–71; PULSE 81–98; RESP 16–18; TEMP 96.6–99.4; O2SAT 95–97
[2016-12-31] MEDS: CEFEPIME INJ 2,000 MG in SODIUM CHLORIDE 0.9% INJ 100 ML IV SCH ×3 (02:28→16:41)
[2016-12-31] MEDS ORDERED: ALTEPLASE RECOMBINANT 2 MG VIAL INTRACATH PRN (08:00)
[2016-12-31] MEDS: RESP: ALBUTEROL 2.5 MG/IPRATROPIUM 0.5 MG NEB (SCH) NEB ×2 (08:16→19:00)
--- NOTE | 2016-12-31 09:55 | PD.ONC.PN ---
Subjective Subjective Remarks Afebrile overnight. Patient eating breakfast. He states his cough and congestion are improved. He is able to get to the bathroom on his own, but still sometimes feels weak. He notes he has had weakness in his legs present for the past few weeks, as well as some numbness and tingling in the left arm and left leg. discussed with RN Objective Data Date Time Temp Pulse Resp B/P Pulse Ox O2 Delivery O2 Flow Rate FiO2 12/31/16 08:16 95 21 12/31/16 08:00 97.4 93 16 118/70 96 12/31/16 04:00 98.1 86 18 136/71 96 12/31/16 00:00 99.4 98 18 111/66 96 12/30/16 20:00 98.9 92 18 115/66 95 12/30/16 19:05 95 21 12/30/16 16:00 97.5 75 20 98/66 96 12/30/16 12:00 97.5 88 20 82/57 95 Result Diagram: 12/30/16 1035 12/30/16 1035 Laboratory Results Laboratory Tests Test 12/30/16 10:35 White Blood Count 11.2 TH/MM3 Red Blood Count 5.00 MIL/MM3 Hemoglobin 14.6 GM/DL Hematocrit 42.7 % Mean Corpuscular Volume 85.5 FL Mean Corpuscular Hemoglobin 29.2 PG Mean Corpuscular Hemoglobin 34.2 % Concent Red Cell Distribution Width 15.0 % Platelet Count 143 TH/MM3 Mean Platelet Volume 7.0 FL Neutrophils (%) (Auto) 76.9 % Lymphocytes (%) (Auto) 6.9 % Monocytes (%) (Auto) 13.6 % Eosinophils (%) (Auto) 2.4 % Basophils (%) (Auto) 0.2 % Neutrophils # (Auto) 8.6 TH/MM3 Lymphocytes # (Auto) 0.8 TH/MM3 Monocytes # (Auto) 1.5 TH/MM3 Eosinophils # (Auto) 0.3 TH/MM3 Basophils # (Auto) 0.0 TH/MM3 CBC Comment DIFF FINAL Differential Comment Sodium Level 134 MEQ/L Potassium Level 4.5 MEQ/L Chloride Level 98 MEQ/L Carbon Dioxide Level 29.2 MEQ/L Anion Gap 7 MEQ/L Blood Urea Nitrogen 12 MG/DL Creatinine 0.83 MG/DL Estimat Glomerular Filtration 91 ML/MIN Rate Random Glucose 130 MG/DL Calcium Level 8.8 MG/DL Total Bilirubin 0.7 MG/DL Aspartate Amino Transf 22 U/L (AST/SGOT) Alanine Aminotransferase 22 U/L (ALT/SGPT) Alkaline Phosphatase 85 U/L Total Protein 6.1 GM/DL Albumin 2.8 GM/DL Culture Results Microbiology Date/Time Procedure Status Source Growth 12/29/16 09:12 Aerobic Blood Culture - Preliminary Resulted Blood Peripheral NO GROWTH IN 1 DAY 12/29/16 09:12 Anaerobic Blood Culture - Preliminary Resulted Blood Peripheral NO GROWTH IN 1 DAY 12/29/16 09:50 Aerobic Blood Culture - Preliminary Resulted Blood Peripheral NO GROWTH IN 1 DAY 12/29/16 09:50 Anaerobic Blood Culture - Preliminary Resulted Blood Peripheral NO GROWTH IN 1 DAY Administered Medications Medications (Trade) Dose Ordered Sig/Levy Route PRN Reason Start Time Stop Time Status Last Admin Dose Admin IV Flush 2 ml 2 ml BID FLUSH 12/29/16 21:00 12/30/16 21:10 Cefepime HCl/ Sodium Chloride (Maxipime Inj/NS Inj) 100 ml @ 200 mls/hr Q8H IV 12/29/16 18:00 12/31/16 02:28 Lactobacillus Acidophilus (Lactinex) 1 tab Q12HR PO 12/29/16 21:00 12/30/16 21:09 Atorvastatin Calcium (Lipitor) 40 mg DAILY PO 12/30/16 09:00 12/30/16 10:22 Furosemide (Lasix) 20 mg DAILY PO 12/30/16 09:00 12/30/16 10:22 Losartan Potassium (Cozaar) 25 mg DAILY PO 12/30/16 09:00 12/30/16 10:22 Metoprolol Tartrate 100 mg 100 mg DAILY PO 12/30/16 09:00 12/30/16 10:23 Azithromycin/ Sodium Chloride (Zithromax Inj/ NS 250 ml Inj) 250 ml @ 250 mls/hr Q24H IV 12/30/16 09:00 12/30/16 10:24 Heparin Sodium (Porcine) (Heparin Central Flush) 250 units UNSCH PRN IVF SEE PROTOCOL TABLE 12/30/16 10:00 12/30/16 10:24 Clonazepam (KlonoPIN) 1 mg HS PO 12/30/16 21:00 12/30/16 21:09 Objective Remarks GENERAL: Elderly male, sitting up in bed eating breakfast. SKIN: Warm and dry. HEAD: Normocephalic. EYES: No injection or drainage. NECK: Supple, trachea midline. CARDIOVASCULAR: +S1/S2 RESPIRATORY: no breath sounds, left lung. crackles, left lung base. GASTROINTESTINAL: Abdomen soft, non-tender, nondistended. EXTREMITIES: No cyanosis NEUROLOGICAL: awake and alert. normal speech. Assessment/Plan Problem List: (1) Carcinoma, lung Status: Acute Plan: History: 1997--diagnosed and had a left pneumonectomy 2007 developed recurrence involving the right lung positive for poorly differentiated squamous cell carcinoma. treated with concurrent chemotherapy and radiation therapy and achieved a remission. 2014 relapse--> underwent additional radiation therapy. 2016: further recurrence in 2015, again treated with radiation therapy. October 2016, started on nivolumab receiving treatment every two weeks. +20 pound weight loss during the past several months. CT ab/pelvis: no mets in abdomen Ct thorax: 3.5cm mass in the lateral right lung apex. +mass1.5 cm, right hilum; + 6 cm mass-like density in the posterior right lung base with some adjacent airspace consolidation. 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 (2) Pneumonia Status: Acute Plan: --on Cefepime and Zithromax --BC no growth --WBC improving Assessment 71y/o male with metastatic NSCLC admitted with pneumonia h/o Cholecystectomy. Coronary artery bypass grafting of three vessels in 2000. Defibrillator placement in 2010. Left pneumonectomy in 1997. Hypertension. Myocardial infarction in 1984. Plan 1. continue supportive care 2. continue antibiotics 3. plan for follow up in clinic once discharged 4. patient cannot have MRI, will order CT brain and CT lumbar spine. Attending Statement The exam, history, and the medical decision-making described in the above note were completed with the assistance of the mid-level provider. I reviewed and agree with the findings presented. I attest that I had a [id number] encounter with the patient on the same day, and personally performed and documented my assessment and findings in the medical record. 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 Gomez. Patient could potentially get stereotactic radiation treatments to the 3 brain lesions. Unfortunately , he has a pacemaker and can not get an MRI to plan for SRS. possibility of doing IMRT? discussed the situation with patient in detail With respect to lung lesions, would need imaging CD from [place] for comparison whether there is progressive disease Problem Qualifiers (1) Carcinoma, lung: Qualified Code: C34.91 - Carcinoma, lung, right (2) Pneumonia: Qualified Code: J18.1 - Pneumonia of right lower lobe due to infectious organism Shara Narvaez Dec 31, 2016 09:55 Bryan Hightower MD Dec 31, 2016 22:10
[2016-12-31] MEDS: LACTOBACILLUS ACIDOPHILUS TAB PO SCH ×2 (10:07→22:14)
[2016-12-31] MEDS: ATORVASTATIN 40 MG TAB PO SCH (10:08)
[2016-12-31] MEDS: METOPROLOL TARTRATE 100 MG TAB PO SCH (10:08)
[2016-12-31] MEDS: LOSARTAN 25 MG TAB PO SCH (10:08)
[2016-12-31] MEDS: FUROSEMIDE 20 MG TAB PO SCH (10:08)
[2016-12-31] MEDS: AZITHROMYCIN INJ 500 MG in SODIUM CHLOR 0.9% 250 ML INJ 250 ML IV SCH (10:09)
[2016-12-31] MEDS: SODIUM CHLORIDE 0.9% FLUSH 5 ML FLUSH FLUSH SCH ×2 (10:09→22:14)
--- NOTE | 2016-12-31 11:03 | HHI.PR ---
Subjective Remarks Follow-up severe sepsis/community-acquired pneumonia/lung cancer 12/30/16-patient seen and examined, reports significant improvement of weakness as well as cough production. Currently afebrile 12/31/16-patient seen and examined; improved cough sxs; complains of BLE weakness despite the fact he is able to ambulate more. Afebrile Objective Vitals Vital Signs Date Time Temp Pulse Resp B/P Pulse Ox O2 Delivery O2 Flow Rate FiO2 12/31/16 08:16 95 21 12/31/16 08:00 97.4 93 16 118/70 96 12/31/16 04:00 98.1 86 18 136/71 96 12/31/16 00:00 99.4 98 18 111/66 96 12/30/16 20:00 98.9 92 18 115/66 95 12/30/16 19:05 95 21 12/30/16 16:00 97.5 75 20 98/66 96 12/30/16 12:00 97.5 88 20 82/57 95 I/O 12/30/16 12/30/16 12/30/16 12/31/16 12/31/16 12/31/16 07:00 15:00 23:00 07:00 15:00 23:00 Intake Total 340 ml 1342 ml 480 ml Output Total 600 ml 1300 ml 450 ml Balance -260 ml 42 ml 30 ml Intake Oral 240 ml 960 ml 480 ml IV Total 100 ml 382 ml Output Urine Total 600 ml 1300 ml 450 ml # Voids 2 2 # Bowel Movements 0 0 1 Result Diagram: 12/30/16 1035 12/30/16 1035 Objective Remarks GENERAL: NAD SKIN: Warm and dry. HEAD: Normocephalic. EYES: No scleral icterus. No injection or drainage. NECK: Supple, trachea midline. No JVD or lymphadenopathy. CARDIOVASCULAR: Regular rate and rhythm without murmurs, gallops, or rubs. RESPIRATORY: Breath sounds decrease Right lung and absent on Left side. No accessory muscle use. GASTROINTESTINAL: Abdomen soft, non-tender, nondistended. MUSCULOSKELETAL: No cyanosis, or edema. BACK: Nontender without obvious deformity. No CVA tenderness. A/P Problem List: (1) Severe sepsis ICD Code: A41.9 Status: Acute (2) Pneumonia ICD Code: J18.9 Status: Acute (3) Carcinoma, lung ICD Code: C34.90 Status: Acute Assessment and Plan 71-year-old male with Severe sepsis: Resolved; continue with cefepime every 8Hours and Azithromycin; monitor cultures Community-acquired pneumonia: Chest x-ray with finding of Nonspecific infiltrate in the right lower lung. Outside CT thorax 12/13/16 with finding of 3.5 cm masslike density in the lateral right lung apex with some adjacent linear parenchymal density and a greater than 6 cm masslike density present in the posterior right lung base with some adjacent airspace consolidation. Several right lung masses are noted with no comparison studies, also noted previous left pneumonectomy. 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 Patient currently receiving chemotherapy.Outside CT thorax 12/13/16 with finding of 3.5 cm masslike density in the lateral right lung apex with some adjacent linear parenchymal density and a greater than 6 cm masslike density present in the posterior right lung base with some adjacent airspace consolidation. Several right lung masses are noted with no comparison studies, also noted previous left pneumonectomy. outside CT abdomen/pelvics without no evidence of metastasis disease in abdomen /pelvics Anorexia: Secondary to history of present on cancer, dietary consult. Ensure 3 times a day. History of heart disease, and other chronic medical conditions: Continue outpatient medications DVT Prophylaxis: B-SCDs Physical deconditioning: PT consult to treat Problem Qualifiers (1) Pneumonia: Qualified Code: J18.1 - Pneumonia of right lower lobe due to infectious organism (2) Carcinoma, lung: Qualified Code: C34.91 - Carcinoma, lung, right Ezekiel Gotti MD Dec 31, 2016 11:03
[2016-12-31] MEDS ORDERED: IOHEXOL 350 MG/ML 10 ML VIAL (for RAD DIAG) IV ONE (11:53)
[2016-12-31] MEDS ORDERED: DEXAMETHASONE SOD PHOS 4 MG/ML VIAL IV PUSH SCH (12:30)
--- NOTE | 2016-12-31 12:59 | RADRPT ---
EXAM DATE/TIME: 12/31/2016 11:43 [facility] COMPARISON: No previous studies available for comparison. INDICATIONS : Lower extremity weakness in patient with lung cancer IV CONTRAST: 92 cc Omnipaque 350 (iohexol) IV ; Cumulative dose for multiple exams. RADIATION DOSE: 54.22 CTDIvol (mGy) MEDICAL HISTORY : Cardiovascular disease. Hypertension. Carcinoma, lung. SURGICAL HISTORY : Cholecystectomy. Pacemaker. ENCOUNTER: Initial ACUITY: 2 days PAIN SCALE: 0/10 LOCATION: cranial TECHNIQUE: Multiple contiguous axial images were obtained of the head. Using automated exposure control and adj ustment of the mA and/or kV according to patient size, radiation dose was kept as low as reasonably a chievable to obtain optimal diagnostic quality images. FINDINGS: There is a 1.8 x 1.7 cm enhancing mass in the right occipital lobe with surrounding mild ed deny. There are 2 additional ring-enhancing cystic masses identified, one in the right basal ganglia m easuring 1.7 x 1.9 cm and one in the left cerebellum measuring 1.5 x 1.4 cm. These have mild surround ing edema as well. There is no midline shift or significant mass effect. The brainstem is intact. The ventricular system is within normal limits. The bone windows are unremarkable. CONCLUSION: 3 brain metastasis as described. Delonte Whitman MD on December 31, 2016 at 12:51 Board Certified Radiologist. This report was verified electronically.
--- NOTE | 2016-12-31 13:35 | RADRPT ---
EXAM DATE/TIME: 12/31/2016 11:43 [facility] COMPARISON: No previous studies available for comparison. INDICATIONS : Lower extremity weakness in patient with lung cancer. Newly diagnosed brain metastasis. IV CONTRAST: 92 cc Omnipaque 350 (iohexol) IV ; Cumulative dose for multiple exams. RADIATION DOSE: 19.08 CTDIvol (mGy) ; Combined studies MEDICAL HISTORY : Carcinoma, lung. Hypertension. Cardiovascular disease SURGICAL HISTORY : Cholecystectomy. Pacemaker. ENCOUNTER: Initial ACUITY: 2 days PAIN SCALE: 0/10 LOCATION: neck TECHNIQUE: Volumetric scanning of the cervical spine was performed. Multiplanar reconstructions in the sagittal , coronal and oblique axial planes were performed. Using automated exposure control and adjustment o f the mA and/or kV according to patient size, radiation dose was kept as low as reasonably achievable to obtain optimal diagnostic quality images. FINDINGS: VERTEBRA: Normal vertebral body height. DISCS: Mild degenerative disc changes are present at the C5-6 level with disc space narrowing and hypertroph ic change. There are degenerative changes involving atlantoaxial joint ia well. ALIGNMENT: No evidence of subluxation. C2-C3: The bony spinal canal is normal in size. No evidence of disc bulge or herniation. The neural forami na are bilaterally patent. C3-C4: The bony spinal canal is normal in size. No evidence of disc bulge or herniation. The neural forami na are bilaterally patent. C4-C5: The bony spinal canal is normal in size. No evidence of disc bulge or herniation. The neural foramina are bilaterally patent. C5-C6: Moderate broad-based disc osteophyte complex with mass effect on the anterior thecal sac and no defin ite mass effect on the cord. The neural foramina are bilaterally patent. C6-C7: The bony spinal canal is normal in size. No evidence of disc bulge or herniation. The neural forami na are bilaterally patent. C7-T1: The bony spinal canal is normal in size. No evidence of disc bulge or herniation. The neural forami na are bilaterally patent. CONCLUSION: 1. No evidence of metastatic disease cervical spine. 2. Degenerative disc change at C5-6 with disc osteophyte complex with mass effect on the anterior the tra sac. Delonte Whitman MD on December 31, 2016 at 13:24 Board Certified Radiologist. This report was verified electronically.
[2016-12-31] MEDS: PANTOPRAZOLE SODIUM 40 MG VIAL IV PUSH SCH (13:36)
[2016-12-31] MEDS: DEXAMETHASONE SOD PHOS 4 MG/ML VIAL IV PUSH SCH ×2 (14:00→22:13)
[2016-12-31] MEDS: clonazePAM 1 MG TAB PO SCH (22:14)
[2017-01-01 00:25] VITALS: BP 92/52; PULSE 79; RESP 16; TEMP 96.8; O2SAT 95
[2017-01-01] MEDS: CEFEPIME INJ 2,000 MG in SODIUM CHLORIDE 0.9% INJ 100 ML IV SCH ×2 (02:47→09:49)
[2017-01-01 04:00] VITALS: BP 122/80; PULSE 83; RESP 18; TEMP 96.8; O2SAT 97
[2017-01-01] MEDS: DEXAMETHASONE SOD PHOS 4 MG/ML VIAL IV PUSH SCH ×2 (05:01→13:00)
[2017-01-01] MEDS: RESP: ALBUTEROL 2.5 MG/IPRATROPIUM 0.5 MG NEB (SCH) NEB ×2 (07:55→13:47)
[2017-01-01 08:00] VITALS: BP 115/77; PULSE 75; RESP 20; TEMP 96.1; O2SAT 97
[2017-01-01] MEDS: ATORVASTATIN 40 MG TAB PO SCH (09:00)
--- NOTE | 2017-01-01 09:13 | HHI.PR ---
Subjective Remarks Follow-up severe sepsis/community-acquired pneumonia/lung cancer 12/30/16-patient seen and examined, reports significant improvement of weakness as well as cough production. Currently afebrile 12/31/16-patient seen and examined; improved cough sxs; complains of BLE weakness despite the fact he is able to ambulate more. Afebrile 01/01/17-patient seen and examined; stable and denies any lower extremity is weakness. CT brain with evidence of metastasis. CT spine negative Objective Vitals Vital Signs Date Time Temp Pulse Resp B/P Pulse Ox O2 Delivery O2 Flow Rate FiO2 01/01/17 04:00 96.8 83 18 122/80 97 01/01/17 00:25 96.8 79 16 92/52 95 12/31/16 20:00 96.6 93 18 123/62 96 12/31/16 16:00 97.9 81 16 89/62 96 12/31/16 12:00 97.0 90 16 115/71 97 I/O 12/31/16 12/31/16 12/31/16 01/01/17 01/01/17 01/01/17 07:00 15:00 23:00 07:00 15:00 23:00 Intake Total 350 ml 1310 ml Balance 350 ml 1310 ml Intake Oral 350 ml 960 ml IV Total 350 ml # Voids 2 2 4 # Bowel Movements 0 Result Diagram: 12/30/16 1035 12/30/16 1035 Imaging Last Impressions Head CT 12/31/16 0000 Signed Impressions: Service Date/Time: Saturday, December 31, 2016 11:43 - CONCLUSION: 3 brain metastasis as described. Delonte Whitman MD Cervical Spine CT 12/31/16 0000 Signed Impressions: Service Date/Time: Saturday, December 31, 2016 11:43 - CONCLUSION: 1. No evidence of metastatic disease cervical spine. 2. Degenerative disc change at C5-6 with disc osteophyte complex with mass effect on the anterior thecal sac. Delonte Whitman MD Chest X-Ray 12/29/16 0850 Signed Impressions: Service Date/Time: Thursday, December 29, 2016 09:07 - CONCLUSION: Nonspecific infiltrate in the right lower lung. There are no prior studies for comparison. Recommend noncontrast CT thorax for further evaluation. Wil Ferrara MD Objective Remarks GENERAL: NAD SKIN: Warm and dry. HEAD: Normocephalic. EYES: No scleral icterus. No injection or drainage. NECK: Supple, trachea midline. No JVD or lymphadenopathy. CARDIOVASCULAR: Regular rate and rhythm without murmurs, gallops, or rubs. RESPIRATORY: Breath sounds decrease Right lung and absent on Left side. No accessory muscle use. GASTROINTESTINAL: Abdomen soft, non-tender, nondistended. MUSCULOSKELETAL: No cyanosis, or edema. BACK: Nontender without obvious deformity. No CVA tenderness. Procedures none A/P Problem List: (1) Severe sepsis ICD Code: A41.9 Status: Acute (2) Pneumonia ICD Code: J18.9 Status: Acute (3) Carcinoma, lung ICD Code: C34.90 Status: Acute Assessment and Plan 71-year-old male with Severe sepsis: Resolved; continue with cefepime every 8Hours and Azithromycin; monitor cultures Community-acquired pneumonia: Chest x-ray with finding of Nonspecific infiltrate in the right lower lung. Outside CT thorax 12/13/16 with finding of 3.5 cm masslike density in the lateral right lung apex with some adjacent linear parenchymal density and a greater than 6 cm masslike density present in the posterior right lung base with some adjacent airspace consolidation. Several right lung masses are noted with no comparison studies, also noted previous left pneumonectomy. Continue with Cefepime IV every 8 hours and Azithromycin, however was switched to by mouth azithromycin as well as Ceftin on discharge. 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 Patient currently receiving chemotherapy.Outside CT thorax 12/13/16 with finding of 3.5 cm masslike density in the lateral right lung apex with some adjacent linear parenchymal density and a greater than 6 cm masslike density present in the posterior right lung base with some adjacent airspace consolidation. Several right lung masses are noted with no comparison studies, also noted previous left pneumonectomy. outside CT abdomen/pelvics without no evidence of metastasis disease in abdomen /pelvics. Head CT with evidence of metastasis. CT spine negative. Will need outpatient stereotactic radiation treatments to the 3 brain lesions. Possible will need IMRT per Oncology Anorexia: Secondary to history of present on cancer, dietary consult. Ensure 3 times a day. History of heart disease, and other chronic medical conditions: Continue outpatient medications DVT Prophylaxis: B-SCDs Physical deconditioning: PT consult to treat Problem Qualifiers (1) Pneumonia: Qualified Code: J18.1 - Pneumonia of right lower lobe due to infectious organism (2) Carcinoma, lung: Qualified Code: C34.91 - Carcinoma, lung, right Ezekiel Gotti MD Jan 01, 2017 09:13
[2017-01-01] MEDS ORDERED: AZIT500T2 PO (09:19)
[2017-01-01] MEDS ORDERED: CEFT500T3 PO (09:19)
[2017-01-01] MEDS ORDERED: LACT PO (09:19)
--- NOTE | 2017-01-01 09:24 | HHI.DS ---
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 Patient also reports continued decrease appetite. Patient received his last dose of chemotherapy on 12/16/16 and is due for one in January. Currently denies any abdominal pain, chest pain or any GI bleed. He is originally from [place] and has been living in [place] for the past 4 months visiting a friend. Patient has previous partial left lung resection CBC/BMP: 12/30/16 1035 12/30/16 1035 Significant Findings Laboratory Tests Test 12/29/16 12/29/16 12/29/16 12/29/16 09:50 11:50 12:14 14:12 Lactic Acid Level 3.5 mmol/L 4.1 mmol/L 3.1 mmol/L (0.4-2.0) (0.4-2.0) (0.4-2.0) Urine Glucose (UA) 70 mg/dL (NEG) Urine Mucus FEW /lpf (OCC) Test 12/30/16 10:35 White Blood Count 11.2 TH/MM3 (4.0-11.0) Platelet Count 143 TH/MM3 (150-450) Neutrophils (%) (Auto) 76.9 % (16.0-70.0) Lymphocytes (%) (Auto) 6.9 % (9.0-44.0) Monocytes (%) (Auto) 13.6 % (0.0-8.0) Neutrophils # (Auto) 8.6 TH/MM3 (1.8-7.7) Lymphocytes # (Auto) 0.8 TH/MM3 (1.0-4.8) Monocytes # (Auto) 1.5 TH/MM3 (0-0.9) Sodium Level 134 MEQ/L (136-145) Random Glucose 130 MG/DL (74-106) Total Protein 6.1 GM/DL (6.4-8.2) Albumin 2.8 GM/DL (3.4-5.0) Imaging Last Impressions Head CT 12/31/16 0000 Signed Impressions: Service Date/Time: Saturday, December 31, 2016 11:43 - CONCLUSION: 3 brain metastasis as described. Delonte Whitman MD Cervical Spine CT 12/31/16 0000 Signed Impressions: Service Date/Time: Saturday, December 31, 2016 11:43 - CONCLUSION: 1. No evidence of metastatic disease cervical spine. 2. Degenerative disc change at C5-6 with disc osteophyte complex with mass effect on the anterior thecal sac. Delonte Whitman MD Chest X-Ray 12/29/16 0850 Signed Impressions: Service Date/Time: Thursday, December 29, 2016 09:07 - CONCLUSION: Nonspecific infiltrate in the right lower lung. There are no prior studies for comparison. Recommend noncontrast CT thorax for further evaluation. Wil Ferrara MD PE at Discharge GENERAL: NAD SKIN: Warm and dry. HEAD: Normocephalic. EYES: No scleral icterus. No injection or drainage. NECK: Supple, trachea midline. No JVD or lymphadenopathy. CARDIOVASCULAR: Regular rate and rhythm without murmurs, gallops, or rubs. RESPIRATORY: Breath sounds decrease Right lung and absent on Left side. No accessory muscle use. GASTROINTESTINAL: Abdomen soft, non-tender, nondistended. MUSCULOSKELETAL: No cyanosis, or edema. BACK: Nontender without obvious deformity. No CVA tenderness. Hospital Course Patient admitted secondary to severe sepsis due to pneumonia for which he was started on IV antibiotics, DuoNeb and oxygen saturation maintained above 92%. Secondary to history of lung cancer, medical oncology was consulted and CT brain obtain which was positive for metastasis, however CT spine was negative. His medications for other chronic medical conditions were continued. Physical therapy was consulted and patient diet was advanced accordingly. DVT and GI prophylaxis were provided. Vital remained stable prior to discharge and Patient 's condition improved. He was switched to oral antibiotics Pt Condition on Discharge: Stable Discharge Disposition: Discharge Home Discharge Time: <= 30 minutes Discharge Instructions DIET: Follow Instructions for: As Tolerated, No Restrictions Activities you can perform: Regular-No Restrictions Follow up Referrals: Oncology PCP Follow-up - 1 Week New Medications: Azithromycin (Azithromycin) 500 Mg Tab 500 MG PO DAILY Infection #2 Ref 0 TAB Cefuroxime (Ceftin) 500 Mg Tab 500 MG PO BID Infection #6 Ref 0 TAB Lactobacillus Acidophilus (Acidophilus/l-Sporogenes) 1 Tab Tab 1 TAB PO Q12HR Immunosuppression #60 TAB Continued Medications: Atorvastatin (Lipitor) 40 Mg Tab 40 MG PO DAILY Cholesterol Management #30 Ref 0 TAB Clonazepam (Clonazepam) 1 Mg Tab 1 MG PO DAILY #90 Ref 0 TAB Furosemide (Lasix) 20 Mg Tab 20 MG PO DAILY #30 Ref 0 TAB Hydrocodone-Acetaminophen (Lortab) 10-325 Mg Tab 1 TAB PO BID NEB PRN PAIN Ref 0 TAB Losartan (Losartan) 25 Mg Tab 25 MG PO DAILY Blood Pressure Management #30 Ref 0 TAB Metoprolol Tartrate (Metoprolol Tartrate) 100 Mg Tab 100 MG PO DAILY #30 Ref 0 TAB Mexiletine (Mexiletine) 150 Mg Cap 150 MG PO BID NEB Regulate Heart Beat #90 Ref 0 CAP Ezekiel Gotti MD Jan 01, 2017 09:24
--- NOTE | 2017-01-01 09:37 | HHI.FF ---
Face to Face Verification Diagnosis: (1) Pneumonia (2) Severe sepsis (3) Carcinoma, lung Physical Therapy Order: Evaluate and Treat Home Health Nursing Order: Signs/symptoms of disease process I have seen patient Michael Hernandez on 01/01/17. My clinical findings support the need for the requested home health care services because: Deconditioned w/ increased weakness I certify that my clinical findings support that this patient is homebound because: Poor cardiac reserve Ezekiel Gotti MD Jan 01, 2017 09:37
[2017-01-01] MEDS: METOPROLOL TARTRATE 100 MG TAB PO SCH (09:45)
[2017-01-01] MEDS: LACTOBACILLUS ACIDOPHILUS TAB PO SCH (09:45)
[2017-01-01] MEDS: LOSARTAN 25 MG TAB PO SCH (09:45)
[2017-01-01] MEDS: FUROSEMIDE 20 MG TAB PO SCH (09:45)
[2017-01-01] MEDS: AZITHROMYCIN INJ 500 MG in SODIUM CHLOR 0.9% 250 ML INJ 250 ML IV SCH (09:49)
[2017-01-01] MEDS: SODIUM CHLORIDE 0.9% FLUSH 5 ML FLUSH FLUSH SCH (09:51)
--- NOTE | 2017-01-01 11:22 | PD.ONC.PN ---
Subjective Subjective Remarks Afebrile overnight. Patient is sitting in bed in no distress. He tells me he is going home today. He mentions he is planning on going back home to [place] this weekend. He has no complaints. Objective Data Date Time Temp Pulse Resp B/P Pulse Ox O2 Delivery O2 Flow Rate FiO2 01/01/17 08:00 96.1 75 20 115/77 97 01/01/17 04:00 96.8 83 18 122/80 97 01/01/17 00:25 96.8 79 16 92/52 95 12/31/16 20:00 96.6 93 18 123/62 96 12/31/16 16:00 97.9 81 16 89/62 96 12/31/16 12:00 97.0 90 16 115/71 97 Result Diagram: 12/30/16 1035 12/30/16 1035 Imaging Studies Last Impressions Head CT 12/31/16 0000 Signed Impressions: Service Date/Time: Saturday, December 31, 2016 11:43 - CONCLUSION: 3 brain metastasis as described. Delonte Whitman MD Cervical Spine CT 12/31/16 0000 Signed Impressions: Service Date/Time: Saturday, December 31, 2016 11:43 - CONCLUSION: 1. No evidence of metastatic disease cervical spine. 2. Degenerative disc change at C5-6 with disc osteophyte complex with mass effect on the anterior thecal sac. Delonte Whitman MD Chest X-Ray 12/29/16 0850 Signed Impressions: Service Date/Time: Thursday, December 29, 2016 09:07 - CONCLUSION: Nonspecific infiltrate in the right lower lung. There are no prior studies for comparison. Recommend noncontrast CT thorax for further evaluation. Wil Ferrara MD Administered Medications Medications (Trade) Dose Ordered Sig/Levy Route PRN Reason Start Time Stop Time Status Last Admin Dose Admin IV Flush 2 ml 2 ml BID FLUSH 12/29/16 21:00 01/01/17 09:51 Cefepime HCl/ Sodium Chloride (Maxipime Inj/NS Inj) 100 ml @ 200 mls/hr Q8H IV 12/29/16 18:00 01/01/17 09:49 Lactobacillus Acidophilus (Lactinex) 1 tab Q12HR PO 12/29/16 21:00 01/01/17 09:45 Atorvastatin Calcium (Lipitor) 40 mg DAILY PO 12/30/16 09:00 12/31/16 10:08 Furosemide (Lasix) 20 mg DAILY PO 12/30/16 09:00 01/01/17 09:45 Losartan Potassium (Cozaar) 25 mg DAILY PO 12/30/16 09:00 01/01/17 09:45 Metoprolol Tartrate 100 mg 100 mg DAILY PO 12/30/16 09:00 01/01/17 09:45 Azithromycin/ Sodium Chloride (Zithromax Inj/ NS 250 ml Inj) 250 ml @ 250 mls/hr Q24H IV 12/30/16 09:00 01/01/17 09:49 Heparin Sodium (Porcine) (Heparin Central Flush) 250 units UNSCH PRN IVF SEE PROTOCOL TABLE 12/30/16 10:00 12/30/16 10:24 Clonazepam (KlonoPIN) 1 mg HS PO 12/30/16 21:00 12/31/16 22:14 Alteplase, Recombinant (Cathflo Activase Inj) 2 mg Q2H PRN INTRACATH CLOTTED IV ACCESS DEVICE 12/31/16 08:00 12/31/16 10:09 Pantoprazole Sodium (Protonix Inj) 40 mg Q24H IV PUSH 12/31/16 13:00 12/31/16 13:36 Dexamethasone Sodium Phosphate (Decadron Inj) 4 mg Q8HR IV PUSH 12/31/16 14:00 01/01/17 05:01 Objective Remarks GENERAL: Elderly male, sitting up in bed in no distress. SKIN: Warm and dry. HEAD: Normocephalic. EYES: No injection or drainage. NECK: Supple, trachea midline. CARDIOVASCULAR: +S1/S2. No murmur noted. RESPIRATORY: R lung base +crackles. s/p R pneumectomy GASTROINTESTINAL: Abdomen soft, non-tender, nondistended. EXTREMITIES: No cyanosis NEUROLOGICAL: Moving all extremities independently. No obvious focal deficit. Assessment/Plan Problem List: (1) Carcinoma, lung Status: Acute Plan: -- Mets found in brain History: 1997--diagnosed and had a left pneumonectomy 2007 developed recurrence involving the right lung positive for poorly differentiated squamous cell carcinoma. treated with concurrent chemotherapy and radiation therapy and achieved a remission. 2014 relapse--> underwent additional radiation therapy. 2016: further recurrence in 2016, again treated with radiation therapy. October 2016, started on nivolumab receiving treatment every two weeks. +20 pound weight loss during the past several months. CT ab/pelvis: no mets in abdomen Ct thorax: 3.5cm mass in the lateral right lung apex. +mass1.5 cm, right hilum; + 6 cm mass-like density in the posterior right lung base with some adjacent airspace consolidation. 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 (2) Pneumonia Status: Acute Plan: --on Cefepime and Zithromax --BC no growth --WBC improving Assessment 71y/o male with metastatic NSCLC admitted with pneumonia h/o Cholecystectomy. Coronary artery bypass grafting of three vessels in 2000. Defibrillator placement in 2010. Left pneumonectomy in 1997. Hypertension. Myocardial infarction in 1984. Plan 1. Pt was found to have mets to brain on CT scan. No mets to lumbar spine. 2. He is planning to go back to [place] this weekend. 3. OK for discharge from oncology standpoint. 4. If he decides to stay in the area he should followup with Dr. Hightower as an outpatient. 5. Supportive care. Attending Statement The exam, history, and the medical decision-making described in the above note were completed with the assistance of the mid-level provider. I reviewed and agree with the findings presented. I attest that I had a [id number] encounter with the patient on the same day, and personally performed and documented my assessment and findings in the medical record. Problem Qualifiers (1) Carcinoma, lung: Qualified Code: C34.91 - Carcinoma, lung, right (2) Pneumonia: Qualified Code: J18.1 - Pneumonia of right lower lobe due to infectious organism Sydnee Bone Jan 01, 2017 11:22 Bryan Hightower MD Jan 01, 2017 22:44
[2017-01-01 12:00] VITALS: BP 109/70; PULSE 83; RESP 20; TEMP 97.4; O2SAT 98
[2017-01-01 12:15] LABS: AUTOMATED NEUTROPHIL # 5.2 TH/MM3 (1.8-7.7); BASOPHIL % 0.1 % (0.0-2.0); HEMATOCRIT 37.8 % (39.0-51.0); HEMO FLAGS DIFF FINAL; LYMPHOCYTE # 0.2 TH/MM3 (1.0-4.8); MEAN CELL VOLUME 85.1 FL (80.0-100.0); MEAN CORPUSCULAR HEMOGLOBIN 28.5 PG (27.0-34.0); MEAN CORPUSCULAR HGB CONC 33.5 % (32.0-36.0); MONO % 5.6 % (0.0-8.0); NEUT % 91.3 % (16.0-70.0); PLATELET COUNT 135 TH/MM3 (150-450); RED BLOOD COUNT 4.44 MIL/MM3 (4.50-5.90); RED CELL DISTRIBUTION WIDTH 14.4 % (11.6-17.2); WHITE BLOOD COUNT 5.7 TH/MM3 (4.0-11.0)
[2017-01-01] MEDS: PANTOPRAZOLE SODIUM 40 MG VIAL IV PUSH SCH (12:58)
--- NOTE | 2017-01-02 13:06 | RC ---
cc: PATRICIA LAMAS MD DATE OF SERVICE 12/31/2016 DATE OF [address] Bryan Hightower. 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 New brain lesions on CT. REASON FOR VISIT The patient is being evaluated for radiotherapy treatment options to the brain lesion. HISTORY OF PRESENT ILLNESS This is a 71-year-old white male patient of Dr. Bryan Hightower who [place] the area. He had a previous diagnosis of stage IV poorly-differentiated squamous cell carcinoma. It appears that the patient was initially diagnosed in 1997 and undergone concurrent chemoradiation therapy with a good response. At that point, the patient actually surgical removal of the mass and again had recurrence in 2007 and was treated with concomitant chemoradiation therapy. It appears he had a relapse in 2014 undergoing radiation therapy again at that point. In July of 2016, he had a relapses and was started on therapy with nivolumab. He has continued on that type of chemotherapy. The patient says that his performance status has decreased recently. He still feels kind of wobbly and for that reason he decided to come into the hospital and he was admitted for further evaluation. He also has the complaints of increasing cough, shortness of breath and rattle in the chest. For further evaluation, the patient had a CT scan of the brain which had detected three brain lesions. As result of this, Dr. Hightower has requested for me to do a patient consult for possible radiotherapy treatment options for salvage to the brain. PAST MEDICAL HISTORY As above. Also a history of: 1. Cholecystectomy 2. Coronary artery bypass in 2000 3. Defibrillator placement 2010 4. Hernia repair 1960 5. Left pneumonectomy 1997 6. Arthritis 7. Hypercholesterolemia 8. Hypertension 9. HI in 1984. MEDICATIONS Medications include: 1. Atorvastatin 2. Clonazepam 3. Lasix 4. Lortab 5. Losartan 6. Metoprolol 7. Mexiletine ALLERGIES No known drug allergies. FAMILY HISTORY No history of carcinoma in the family. SOCIAL HISTORY The patient was a heavy smoker and has not smoked. Denies any exposure to coal mines. ETOH intake socially. REVIEW OF SYSTEMS CONSTITUTIONAL: The patient says he is feeling much better since being admitted to the hospital. Says that he has lost about 20 pounds in the last few months. ALLERGIES: Has not had allergic reaction recently. EYES: The patient denies any double vision. ENT: Unremarkable. The patient has no difficulty with swallowing. No mouth sores. NECK: Unremarkable. Denies any swelling. INTEGUMENTARY: Unremarkable. Denies any rashes or hives. CARDIOVASCULAR: Unremarkable. Denies any chest pain, palpitations, arrhythmia, no clinical signs of HI. RESPIRATORY: Unremarkable. Admits to a chronic cough, but denies any hemoptysis. No present wheezing. GASTROINTESTINAL: Unremarkable. Denies abdominal pain. No rectal bleeding. GENITOURINARY: Unremarkable. Denies any incontinence. No hematuria. MUSCULOSKELETAL: Admits to some arthritis, but no major bone pain. NEUROLOGIC: Unremarkable. Denies any decrease in cognitive functions. No decrease in memory. No motor function deficits. Denies any symptoms related to increased intracranial pressure or metastatic disease to the brain. PSYCHIATRIC: Denies any suicidal thoughts or depression. ENDOCRINE: Unremarkable. HEMATOLOGIC: Unremarkable. PATHOLOGIC: Unremarkable. PHYSICAL EXAMINATION The patient oriented times three in no acute distress or discomfort. At the time of evaluation, pain rating scale 0/10. VITAL SIGNS: Stable, per hospitalist chart. LUNGS: To auscultation of the lungs, there is decreased ventilatory respiratory effort which is equal and bilateral. Left lung with breath sounds decreased, especially towards the apex. Right minimal rhonchus. I do not detect any wheezing. Rhonchi sounds towards the base. HEART: Appears to be regular rate and rhythm with no murmurs. ABDOMEN: Palpation of the abdominal cavity reveals hepatosplenomegaly. Palpation bilateral necks and supraclavicular areas are free. EXTREMITIES: Without edema at the time of evaluation bilaterally. NEUROLOGIC: No neurological deficit detected. Cognitive functions are noted to be preserved. No abnormalities detected. No other positive findings. SURGICAL PATHOLOGY As recorded on the records. RADIOLOGY CT of the brain 12/31/2016, conclusion three metastatic lesions as described. CT of the cervical spine 12/31/2016, impression, no evidence of metastatic disease in the cervical spine. Degenerative disc change at C5-C6 with disk osteophyte complex with mass effect in the anterior thecal site. 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 The patient is being evaluated for salvage radiotherapy treatment options. PLAN I have discussed this case personally with Dr. Hightower. I have evaluated Dr. Lloyd' note from 12/29/2016. I have discussed with the patient I would like to do radiosurgery, but I can not get an MRI for this treatment as he has a defibrillator placed, so he would not be eligible for the MRI. I advised the patient that I am going to discussed this case with dosimetry and see if I can do IMRT to the separate brain lesions to try to avoid treating his whole brain, but at the end of the day, I may have to treat the whole brain. I will discuss this case also with Dr. Hightower to get his input. The patient advised of the merits of the radiation therapy to the brain, as well as the purpose. The patient believes that he will be discharged tomorrow. I discussed the side effects and complications of radiation therapy to include but not limited to weakness, fatigue, decreased blood counts, erythema of the skin, necrosis skin, loss of hair which could be permanent, redness of the skin, bone damage and fracture, brain damage, brain necrosis which may require prolonged use of steroids, decrease in cognitive functions, decreased hearing, loss of hearing, decreased vision, loss of vision. After the discussion, the patient agreed to move forward as recommended. He was advised that if I could be of any further assistance, please let me know. ADDENDUM 01/01/16: Patient came down for simulation and he was advised that I was going to have to treat his whole brain. Patient stated that he wanted to go back to [place] for treatments and declined simultaion. Patient advised that was imperative we start XRT, but he declined and accepted complications of no tx. Dr. Hightower thank you very much for placing this consult so I can participate in the care of your patient. Should have any further questions or concerns, please do not hesitate to contact me. Patricia Lamas MD Radiation Oncologist [facility]AMPOVER[facility]/SANIA /6:27 PM /12:31 PM SUDHA
== END 2017-01-01 16:41 | disposition home or self-care (01) | DRG 871 ==
LOC: NEPE 08:17 → NEDA 10:29 → HOCA 15:24
PROVIDERS: ADMIT Hospitalist; ATTEND Hospitalist
DX: A41.9 Sepsis, unspecified organism (principal); J18.9 Pneumonia, unspecified organism; C34.31 Malignant neoplasm of lower lobe, right bronchus or lung; C79.31 Secondary malignant neoplasm of brain; I25.810 Atherosclerosis of coronary artery bypass graft(s) without angina pectoris; R65.20 Severe sepsis without septic shock; E78.5 Hyperlipidemia, unspecified; I10 Essential (primary) hypertension; Z95.1 Presence of aortocoronary bypass graft; Z95.5 Presence of coronary angioplasty implant and graft; Z95.810 Presence of automatic (implantable) cardiac defibrillator; Z90.2 Acquired absence of lung [part of]; I25.2 Old myocardial infarction
CPT/HCPCS: 70470; 71010; 72126; 80053; 81001; 83605; 83735; 85025; 87040; 93005; 94640; 94664; 96361; 96365; 96375; 99223; C9113; J0456; J0692; J1100; J1642; J2997; J7030; J7050; Q9967